=== PATIENT | female | born 1960 | race American Indian/Alaskan Native ===

== ENCOUNTER 2019-11-05 12:05 | Emergency (ER) | payer MEDICAID ==
--- NOTE | 2019-11-05 15:12 | Emergency Department Report ---
ED General Adult HPI - General Chief complaint: High BP Stated complaint: HYPERTENSION PUI?: No Time Seen by Provider: 11/05/19 15:01 Source: EMS ( EMS documentation not available at time of chart dictation ), RN notes reviewed, old records reviewed Mode of arrival: Stretcher Limitations: Physical Limitation, Other (The patient is nonverbal) - History of Present Illness Initial comments: Primary care doctor: Dr. Hector Cowan Past medical history: Hypertension, anemia, dementia, chronic renal insufficiency, dysphasia, stroke, hemiplegia, hemiparesis, CVA, affecting right hand side, a fascia, seizure disorder, cognitive communication deficit, lack of coordination, depression, generalized anxiety Blood pressure medications include clonidine, carvedilol, Cozaar The patient is a 59-year-old female. She is not known to myself previously. She is sent to the emergency room for evaluation of hypertension. Patient herself is nonverbal. She is not accompanied by friends or family at this time for additional information or collateral information. Patient herself is nonverbal, she will follow some commands, she cannot indicate if she is having pain, and she cannot describe exacerbating, relieving factors, or qualitative nature of her symptoms. As per triage documentation, patient had blood pressure 165/112 in the field. -: days(s) ([facility] documentation indicates 3 days) Quality: other (Patient not able to describe the qualitative nature of her symptoms, consistency, exacerbating, or relieving factors) ED Review of Systems ROS: Stated complaint: HYPERTENSION Other details as noted in HPI Comment: Patient nonverbal. ED Physical Exam - General Limitations: Physical Limitation (Patient is nonverbal. Right-sided hemipa resis) General appearance: in no apparent distress - Head Head exam: Present: atraumatic, normocephalic - Eye Eye exam: Present: normal appearance, EOMI - ENT ENT exam: Present: normal exam, mucous membranes moist, normal external ear exam - Neck Neck exam: Present: normal inspection, full ROM. Absent: tenderness, meningismus - Respiratory Respiratory exam: Present: normal lung sounds bilaterally. Absent: respiratory distress - Cardiovascular Cardiovascular Exam: Present: regular rate, normal rhythm, normal heart sounds. Absent: bradycardia, tachycardia, irregular rhythm, systolic murmur, diastolic murmur, rubs, gallop - GI/Abdominal GI/Abdominal exam: Present: soft, normal bowel sounds. Absent: distended, tenderness, guarding, rebound, rigid, pulsatile mass - Extremities Exam Extremities exam: Present: normal inspection, other (2+ pulses noted in the bilateral upper and lower extremities. There is no palpable cord. negative Homans sign. Muscular compartments are soft. The pelvis is stable.). Absent: pedal edema, calf tenderness - Back Exam Back exam: Present: normal inspection. Absent: tenderness, CVA tenderness (R), CVA tenderness (L), paraspinal tenderness, vertebral tenderness - Neurological Exam Neurological exam: Present: other (The patient is awake. The patient is moving her left upper extremity. The patient is nonverbal. The patient has chronic right-sided hemiparesis as per in close documentation. Detailed neurologic examination is not performed secondary to patient's a aphasia, and dementia and inability to participate. There is no obvious facial droop) - Psychiatric Psychiatric exam: Present: normal affect, normal mood - Skin Skin exam: Present: warm, dry, intact, normal color. Absent: rash ED Course Vital Signs 11/05/19 15:17 Temperature 97.9 F Pulse Rate 54 L Respiratory 18 Rate Blood Pressure 185/111 [Left] O2 Sat by Pulse 98 Oximetry - Reevaluation(s) Reevaluation #1: 11/05/19 15:13 Differential diagnosis, including but not limited to: Chronic hypertension, general medical evaluation, blood pressure cuff malfunction Assessment and plan: 59-year-old female with a benign and unremarkable physical examination, chronically a phasic, chronically hemiplegic, who is in no acute distress, sent to the emergency room for evaluation of elevated blood pressure. She is on numerous blood pressure medications. I am awaiting ER triage vital signs. Do not anticipate emergent condition at this time. ED Medical Decision Making - Lab Data Vital Signs 11/05/19 15:17 Temperature 97.9 F Pulse Rate 54 L Respiratory 18 Rate Blood Pressure 185/111 [Left] O2 Sat by Pulse 98 Oximetry Critical care attestation.: If time is entered above; I have spent that time in minutes in the direct care of this critically ill patient, excluding procedure time. ED Disposition Clinical Impression: Elevated blood pressure reading Condition: Stable Additional Instructions: Please continue outpatient medications. Please follow-up with your primary care doctor for hypertension and elevated blood pressure within the next week. Please return to the emergency room right away with new pain, worsening, migration of pain, projectile vomiting, change in mental status, confusion, inability to tolerate liquid feeds, new, worsened or different symptoms not present on the initial emergency room evaluation. At this point in time, the patient does not appear to have an emergent medical condition that requires further investigation in the emergency room, or hospitalization. Her chronically elevated blood pressure may be worked up and treated as an outpatient by her primary care doctor. He does not represent an emergency medical condition Referrals: HECTOR COWAN MD [Staff Physician] - 3-5 Days
[2019-11-05] MEDS ORDERED: cloNIDine 0.2 MG TAB PO ONE (15:26)
[2019-11-05] MEDS ORDERED: cloNIDine 0.2 MG TAB ONE (20:10)
[2019-11-05 20:33] VITALS: BP 175/90
== END 2019-11-05 20:32 | disposition home or self-care (01) ==
LOC: ED 12:05
DX: R03.0 Elevated blood-pressure reading, without diagnosis of hypertension (principal); G81.91 Hemiplegia, unspecified affecting right dominant side
CPT/HCPCS: 99283

== ENCOUNTER 2021-11-25 12:26 | Emergency (ER) | payer MEDICARE ==
[2021-11-25 13:32] LABS: Basophils % (Auto) 0.9 % (0.0-1.8); Eosinophils # (Auto) 0.2 K/mm3 (0.0-0.4); Eosinophils % (Auto) 5.4 % (0.0-4.3); Hematocrit 34.1 % (30.3-42.9); Hemoglobin 10.7 gm/dl (10.1-14.3); Lymphocytes # (Auto) 1.5 K/mm3 (1.2-5.4); Lymphocytes % (Auto) 31.9 % (13.4-35.0); Mean Corpuscular HGB Conc 31 % (30-34); Mean Corpuscular Volume 87 fl (79-97); Monocytes # (Auto) 0.4 K/mm3 (0.0-0.8); Monocytes % (Auto) 9.7 % (0.0-7.3); Platelet Count 210 K/mm3 (140-440); Red Blood Count 3.93 M/mm3 (3.65-5.03); Red Cell Distribution Width 17.2 % (13.2-15.2)
--- NOTE | 2021-11-25 13:35 | Emergency Department Report ---
<ANSHUL HUTCHINS - Last Filed: 11/25/21 19:02> ED Female HPI - General Chief complaint: Urogenital-Female Stated complaint: STOOL COMING FROM VAGINAL AREA Time Seen by Provider: 11/25/21 12:57 - Related Data Home Medications Medication Instructions Recorded Confirmed Last Taken Acetaminophen [Tylenol] 2 tab PO BID 02/03/20 02/26/20 Unknown Aspirin [Aspirin BABY CHEW TAB] 81 mg PO QDAY 02/03/20 02/26/20 Unknown Atorvastatin Calcium [Lipitor] 80 mg PO QHS 02/03/20 02/26/20 Unknown Baclofen 5 mg PO TID 02/03/20 02/26/20 Unknown Hydralazine HCl 50 mg PO Q8HR 02/03/20 02/26/20 Unknown Melatonin [Melatonin 3MG TAB 3 mg PO QDAY 02/03/20 02/26/20 Unknown RAPDIS] NIFEdipine [Nifedipine ER] 60 mg PO QDAY 02/03/20 02/26/20 Unknown Sennosides [Senna] 2 tab PO DAILY PRN 02/03/20 02/26/20 Unknown Sertraline HCl [Zoloft] 2 tab PO QAM 02/03/20 02/26/20 Unknown carvediloL [Coreg] 25 mg PO BID 02/03/20 02/26/20 Unknown cloNIDine-TTS PATCH [Catapres-Tts 1 patch TD Q7D 02/03/20 02/26/20 Unknown 0.3mg Patch] donepeziL [Aricept] 10 mg PO QHS 02/03/20 02/26/20 Unknown levETIRAcetam [Keppra] 500 mg PO BID 02/03/20 02/26/20 Unknown polyethylene glycoL 3350 [Miralax 17 gm PO QDAY 02/03/20 02/26/20 Unknown 3350] Previous Rx's Medication Instructions Recorded Last Taken Type Losartan [Cozaar] 50 mg PO QDAY #30 tablet 02/08/20 Unknown Rx Lansoprazole Solutab [Prevacid 30 mg FEEDTUBE QDAY #30 tab.rapdis 02/28/20 Unknown Rx Solutab] Sennosides Tab [Senokot] 17.2 mg PO DAILY PRN #30 tablet 02/28/20 Unknown Rx Allergies Allergy/AdvReac Type Severity Reaction Status Date / Time lisinopril Allergy Unknown Verified 11/25/21 12:51 ED Past Medical Hx - Medications Home Medications: Home Medications Medication Instructions Recorded Confirmed Last Taken Type Acetaminophen [Tylenol] 2 tab PO BID 02/03/20 02/26/20 Unknown History Aspirin [Aspirin BABY CHEW TAB] 81 mg PO QDAY 02/03/20 02/26/20 Unknown History Atorvastatin Calcium [Lipitor] 80 mg PO QHS 02/03/20 02/26/20 Unknown History Baclofen 5 mg PO TID 02/03/20 02/26/20 Unknown History Hydralazine HCl 50 mg PO Q8HR 02/03/20 02/26/20 Unknown History Melatonin [Melatonin 3MG TAB 3 mg PO QDAY 02/03/20 02/26/20 Unknown History RAPDIS] NIFEdipine [Nifedipine ER] 60 mg PO QDAY 02/03/20 02/26/20 Unknown History Sennosides [Senna] 2 tab PO DAILY PRN 02/03/20 02/26/20 Unknown History Sertraline HCl [Zoloft] 2 tab PO QAM 02/03/20 02/26/20 Unknown History carvediloL [Coreg] 25 mg PO BID 02/03/20 02/26/20 Unknown History cloNIDine-TTS PATCH [Catapres-Tts 1 patch TD Q7D 02/03/20 02/26/20 Unknown History 0.3mg Patch] donepeziL [Aricept] 10 mg PO QHS 02/03/20 02/26/20 Unknown History levETIRAcetam [Keppra] 500 mg PO BID 02/03/20 02/26/20 Unknown History polyethylene glycoL 3350 [Miralax 17 gm PO QDAY 02/03/20 02/26/20 Unknown History 3350] Losartan [Cozaar] 50 mg PO QDAY #30 tablet 02/08/20 02/26/20 Unknown Rx Lansoprazole Solutab [Prevacid 30 mg FEEDTUBE QDAY #30 tab.rapdis 02/28/20 Unknown Rx Solutab] Sennosides Tab [Senokot] 17.2 mg PO DAILY PRN #30 tablet 02/28/20 Unknown Rx ED Medical Decision Making - Lab Data Result diagrams: 11/25/21 Unknown 11/25/21 Unknown - Radiology Data Radiology results: report reviewed Patient has known retrovaginal fistula. - Medical Decision Making 61-year-old with a history of CVA, metabolic encephalopathy, aphasia sent from senior living because they thought she had stool coming out of her vagina. On exam patient abdomen is nontender there is no visualized stool from the vagina. CT scan does not show colonic vaginal fistula. Discharge patient back to senior living. ED Disposition Clinical Impression: Acute metabolic encephalopathy Disposition: [address] [place] [address] Is pt being admited?: No Does the pt Need Aspirin: No Condition: Stable Referrals: PRIMARY CARE, [Primary Care Provider] - 3-5 Days <MANJULA WOODS - Last Filed: 11/26/21 21:31> ED Female HPI - General Source: EMS Mode of arrival: Stretcher Limitations: Altered Mental Status, Physical Limitation - History of Present Illness Initial comments: Patient is a 61-year-old female with history of CVA with secondary quadriplegia and aphasia brought in from nursing facility by EMS for suspected rectal vaginal fistula. [facility] staff reportedly noted possible feces coming from her vagina and sent her here for further evaluation. ED Review of Systems ROS: Stated complaint: STOOL COMING FROM VAGINAL AREA Other details as noted in HPI Comment: Unobtainable due to pts medical conditions ED Past Medical Hx - Past Medical History Previous Medical History?: Yes Hx Hypertension: Yes Hx CVA: Yes Hx Congestive Heart Failure: No Hx Diabetes: No Hx Deep Vein Thrombosis: (unknown) Hx Renal Disease: Yes Hx Seizures: Yes Hx Psychiatric Treatment: Yes (depression anxiety) Hx Asthma: No Hx COPD: No Hx Dementia: Yes Additional medical history: muscle spasms, anemia, Hemiplegia and hemiparesis. allergic rhinitis, dyspagia, aphasia. hypokalemia, hyperlipidemia - Surgical History Hx Pacemaker: No Hx Internal Defibrillator: No Additional Surgical History: unknown - Social History Smoking Status: Never Smoker ED Physical Exam - General Limitations: Altered Mental Status, Physical Limitation General appearance: alert, in no apparent distress - Head Head exam: Present: atraumatic, normocephalic - Eye Eye exam: Present: normal appearance, PERRL, EOMI - Respiratory Respiratory exam: Present: normal lung sounds bilaterally. Absent: respiratory distress - Cardiovascular Cardiovascular Exam: Present: regular rate, normal rhythm, normal heart sounds - GI/Abdominal GI/Abdominal exam: Present: soft. Absent: distended - Rectal Rectal exam: Present: normal inspection - External exam: Present: normal external exam - Extremities Exam Extremities exam: Present: other (Contractures in all 4 extremities) - Back Exam Back exam: Present: other (Large sacral decubitus ulcer) - Neurological Exam Neurological exam: Present: alert - Skin Skin exam: Present: warm, dry, normal color, other (See above) ED Course Vital Signs 11/25/21 11/25/21 11/25/21 12:49 13:04 13:15 Temperature 98.7 F Pulse Rate 61 59 L 60 Respiratory 16 21 20 Rate Blood Pressure 117/83 120/87 Blood Pressure 115/81 [Left] O2 Sat by Pulse 98 100 99 Oximetry 11/25/21 11/25/21 11/25/21 13:30 13:45 14:01 Temperature Pulse Rate 58 L 53 L 58 L Respiratory 23 20 22 Rate Blood Pressure 117/79 115/80 121/79 Blood Pressure [Left] O2 Sat by Pulse 99 98 99 Oximetry 11/25/21 11/25/21 11/25/21 14:15 14:30 14:45 Temperature Pulse Rate 50 L 52 L 56 L Respiratory 20 18 19 Rate Blood Pressure 127/84 123/82 127/86 Blood Pressure [Left] O2 Sat by Pulse 97 97 98 Oximetry 11/25/21 11/25/21 11/25/21 15:01 15:15 15:55 Temperature Pulse Rate 49 L 52 L 51 L Respiratory 22 21 22 Rate Blood Pressure 129/82 129/82 129/82 Blood Pressure [Left] O2 Sat by Pulse 99 98 100 Oximetry 11/25/21 11/25/21 11/25/21 16:00 16:15 16:30 Temperature Pulse Rate 53 L 49 L 51 L Respiratory 19 21 22 Rate Blood Pressure 137/91 131/88 141/89 Blood Pressure [Left] O2 Sat by Pulse 99 100 99 Oximetry 11/25/21 11/25/21 11/25/21 16:45 16:51 17:00 Temperature Pulse Rate 47 L 46 L Respiratory 23 19 Rate Blood Pressure 145/95 141/89 Blood Pressure [Left] O2 Sat by Pulse 100 99 98 Oximetry 11/25/21 11/25/21 11/25/21 17:15 17:30 17:45 Temperature Pulse Rate 48 L 52 L 48 L Respiratory 14 24 20 Rate Blood Pressure 156/93 134/80 144/93 Blood Pressure [Left] O2 Sat by Pulse 100 98 100 Oximetry 11/25/21 11/25/21 11/25/21 18:01 18:15 18:30 Temperature Pulse Rate 47 L 52 L 51 L Respiratory 21 22 22 Rate Blood Pressure 151/91 150/95 153/94 Blood Pressure [Left] O2 Sat by Pulse 100 98 99 Oximetry 11/25/21 11/25/21 11/25/21 18:45 19:01 19:15 Temperature Pulse Rate 51 L 60 47 L Respiratory 23 19 24 Rate Blood Pressure 149/90 145/97 148/88 Blood Pressure [Left] O2 Sat by Pulse 99 99 99 Oximetry 11/25/21 11/25/21 11/25/21 19:30 19:45 20:01 Temperature Pulse Rate 48 L 47 L 50 L Respiratory 21 25 H 22 Rate Blood Pressure 146/88 133/94 140/86 Blood Pressure [Left] O2 Sat by Pulse 99 100 100 Oximetry 11/25/21 11/25/21 11/25/21 20:15 20:30 20:45 Temperature Pulse Rate 56 L 56 L 53 L Respiratory 13 16 23 Rate Blood Pressure 137/88 138/91 135/90 Blood Pressure [Left] O2 Sat by Pulse 98 98 97 Oximetry 11/25/21 11/25/21 11/25/21 21:00 21:15 21:30 Temperature Pulse Rate 48 L 49 L 49 L Respiratory 13 18 20 Rate Blood Pressure 142/86 142/94 143/87 Blood Pressure [Left] O2 Sat by Pulse 99 99 98 Oximetry 11/25/21 11/25/21 21:45 22:00 Temperature Pulse Rate 50 L 50 L Respiratory 21 18 Rate Blood Pressure 134/92 139/89 Blood Pressure [Left] O2 Sat by Pulse 100 99 Oximetry ED Medical Decision Making - Lab Data Result diagrams: 11/25/21 Unknown 11/25/21 Unknown Critical care attestation.: If time is entered above; I have spent that time in minutes in the direct care of this critically ill patient, excluding procedure time.
[2021-11-25 13:42] LABS: INR 1.02 (0.87-1.13)
[2021-11-25 13:54] LABS: Alanine Aminotransferase 16 units/L (7-56); Albumin 2.9 g/dL (3.9-5); Blood Urea Nitrogen 26 mg/dL (7-17); Hemolysis Index 3
[2021-11-25 13:55] LABS: BUN/Creatinine Ratio 43; Bilirubin,Direct < 0.2 mg/dL (0-0.2)
--- NOTE | 2021-11-25 16:16 | Cat Scan Report ---
CT ABDOMEN AND PELVIS WITH CONTRAST HISTORY: Rule out rectovaginal fistula COMPARISON: 05/12/2021 TECHNIQUE: Axial CT images were obtained through the abdomen and pelvis after 100 cc of Omnipaque 350 IV contrast. Sagittal and coronal reformatted images. All CT scans at this location are performed us ing CT dose reduction for ALARA by means of automated exposure control. FINDINGS: CT ABDOMEN: Lung Bases: Clear. Liver: No significant abnormality. Biliary: No significant abnormality. Spleen: No significant abnormality. Unenlarged. Pancreas: No significant abnormality. Adrenals: No significant abnormality. Kidneys: No significant abnormality. Lymphatics: No lymphadenopathy. Vasculature: No significant abnormality. Bowel/Peritoneum: Rectal contrast administration failed. The patient was unable to retain the rectal tube. No rectovaginal fistula is confidently identified on CT with IV contrast. There is no evidence for bowel obstruction or focal inflammation. PEG tube appears in good position. The appendix is tre l. No evidence for ascites, fluid collection or free air. CT PELVIS: : There is trace gas in the bladder. This may be secondary to instrumentation. The bladder is other vargas unremarkable. The uterus and adnexa are within normal limits. There is a small amount of fluid i n the superior vaginal canal. Trace gas is also identified in the right side of the vaginal canal on image 120 series 2. Again, no rectovaginal fistula is detected. Osseous Structures: No significant abnormality. Sacral decubitus ulcer is suspected without obvious c omplication. Additional Findings: None IMPRESSION: No rectovaginal fistula is detected. See above. Signer Name: Sony Saucedo Jr, MD Signed: 11/25/2021 4:12 PM Workstation Name: [id number]
[2021-11-25 22:09] VITALS: BP 139/89
== END 2021-11-25 22:45 ==
LOC: MERGE 12:26 → ED 12:26
DX: G93.41 Metabolic encephalopathy (principal); I10 Essential (primary) hypertension; R56.9 Unspecified convulsions; N28.9 Disorder of kidney and ureter, unspecified; F03.90 Unspecified dementia, unspecified severity, without behavioral disturbance, psychotic disturbance, mood disturbance, and anxiety; Z86.73 Personal history of transient ischemic attack (TIA), and cerebral infarction without residual deficits; Z91.09 Other allergy status, other than to drugs and biological substances; Z79.899 Other long term (current) drug therapy
CPT/HCPCS: 36415; 74177; 80048; 80076; 85025; 85610; 99284; Q9967